=== PATIENT | male | born 1995 | race Caucasian/White ===

== ENCOUNTER → 2016-07-23 | Outpatient (REF) ==
--- NOTE | 2016-07-23 15:14 | PFTRPT ---
DATE OF PROCEDURE: 07/23/2016 ORDERED BY: Karina Hastings Study of excellent technical quality. Forced vital capacity normal. FEV1 is in proportion. Obstructive index is therefore normal. Expiratory limb of the flow volume loop is normal. Total lung capacity normal. Residual volume is generally in proportion. Diffusion capacity is normal. No hemoglobin available for correction. Airways resistance and conductance are normal. IMPRESSION: Normal study. MTDD
== END ==
LOC: M CARPUL 14:50
PROVIDERS: ATTEND Nurse Practitioner Adult Health
DX: Z02.89 Encounter for other administrative examinations (principal)

== ENCOUNTER 2016-09-26 22:19 | Emergency (ER) | payer BC ==
[~2016-09-26] VITALS: Ht 180.3 cm; Wt 113.4 kg
[2016-09-26] MEDS ORDERED: CLEO300C2 PO (23:59)
[2016-09-26] MEDS ORDERED: INDO50CA PO (23:59)
[2016-09-27] MEDS ORDERED: CLINDAMYCIN 150 MG CAP PO ONE
[2016-09-27] MEDS ORDERED: INDOMETHACIN 25 MG CAP PO ONE
[2016-09-27 00:11] VITALS: BP 128/77
== END 2016-09-27 00:14 | disposition home or self-care (01) ==
LOC: M ED 23:35
DX: L03.032 Cellulitis of left toe (principal); Z88.1 Allergy status to other antibiotic agents

== ENCOUNTER → 2016-10-05 | Outpatient (CLI) | payer BC ==
[~2016-10-05] MED LIST: CLEO300C2 PO; INDO50CA PO
== END ==
LOC: M LAB 14:19
PROVIDERS: ATTEND Nurse Practitioner Family
DX: M1A.0720 Idiopathic chronic gout, left ankle and foot, without tophus (tophi) (principal)

== ENCOUNTER → 2017-04-23 | Outpatient (CLI) | payer BC ==
--- NOTE | 2017-04-23 13:46 | REP ---
Clinical: Pain. Technique: AP, lateral, bilateral oblique views of the right ankle. Comparison: 02/12/2009. Findings: Diffuse soft tissue swelling is appreciated primarily over the lateral malleolus. No acute fracture dislocation. Joint spaces and ankle mortise are intact. No overt arthritic degenerative changes noted. Impression: Diffuse swelling. Signed by Russel Jara MD 04/23/2017 01:38 P
[2017-04-23 17:12] LABS: BASO # 0.1 10^3/uL (0.0-0.2); BASO % 1.1 % (0.0-1.0); EOS # 0.2 10^3/uL (0.0-0.50); EOS % 2.4 % (0.0-3.0); IMMATURE GRANULOCYTE % 0.5 % (0-0); LYMPH # 1.9 10^3/uL (1.5-6.5); LYMPH % 22.1 % (24.0-44.0); MEAN CORPUSCULAR HGB CONC 34.4 g/dl (32.0-36.5); MEAN CORPUSCULAR VOLUME 87.1 fl (80.0-96.0); MONO # 0.8 10^3/uL (0.0-0.8); MONO % 9.9 % (0.0-5.0); NEUTROPHILS # 5.4 10^3/uL (1.8-7.7); PLATELET COUNT, AUTOMATED 289 10^3/uL (150-450); RED CELL DISTRIBUTION WIDTH 12.2 % (11.5-14.5); WHITE BLOOD COUNT 8.4 10^3/uL (4.0-10.0)
== END ==
LOC: M WUC 13:17
PROVIDERS: ATTEND Physician Assistant
DX: M25.571 Pain in right ankle and joints of right foot (principal); M79.89 Other specified soft tissue disorders

== ENCOUNTER → 2017-07-09 | Outpatient (CLI) | payer BC ==
[2017-07-09 14:56] LABS: ANION GAP 8 MEQ/L (8-16); BLOOD UREA NITROGEN 15 MG/DL (7-18); CALCIUM LEVEL 8.9 MG/DL (8.5-10.1); CARBON DIOXIDE LEVEL 27 MEQ/L (21-32); CHLORIDE LEVEL 106 MEQ/L (98-107); GLOMERULAR FILTRATION RATE > 60.0 (>60); GLUCOSE, FASTING 84 MG/DL (70-100); POTASSIUM SERUM 4.3 MEQ/L (3.5-5.1); SODIUM LEVEL 141 MEQ/L (136-145); URIC ACID 6.5 MG/DL (3.5-7.2)
== END ==
LOC: M LAB 13:08
DX: M10.071 Idiopathic gout, right ankle and foot (principal)
CPT/HCPCS: 84550

== ENCOUNTER → 2017-07-17 | Outpatient (REF) | LOC: M CARPUL 10:54 | DX: Z02.89 Encounter for other administrative examinations (principal) ==

== ENCOUNTER 2018-07-03 00:20 | Emergency (ER) | payer BC ==
[~2018-07-03] VITALS: Ht 180.3 cm; Wt 115.9 kg
[2018-07-03] MEDS ORDERED: METOCLOPRAMIDE INJ 10MG/2ML VIAL (J2765) IV ONE (00:45)
[2018-07-03] MEDS ORDERED: NS 1,000 ML IV ONE (00:45)
[2018-07-03] MEDS ORDERED: MORPHINE 4 MG/ML 1ML VIAL/SYRINGE (J2270) IV ONE (00:45)
[2018-07-03] MEDS ORDERED: GASTROGRAFIN SOLUTION 30ML (Q9963) As Ordered ONE (00:45)
[2018-07-03 00:49] LABS: BASO # 0.1 10^3/uL (0.0-0.2); BASO % 0.7 % (0.0-1.0); EOS # 0.2 10^3/uL (0.0-0.50); EOS % 2.5 % (0.0-3.0); HEMATOCRIT 46.9 % (42.0-52.0); HEMOGLOBIN 16.1 g/dl (13.5-17.5); LYMPH # 1.9 10^3/uL (1.5-6.5); LYMPH % 20.2 % (24.0-44.0); MEAN CORPUSCULAR HEMOGLOBIN 30.8 pg (27.0-33.0); MEAN CORPUSCULAR HGB CONC 34.3 g/dl (32.0-36.5); MEAN CORPUSCULAR VOLUME 89.8 fl (80.0-96.0); MONO # 0.7 10^3/uL (0.0-0.8); MONO % 7.9 % (0.0-5.0); NEUTROPHILS # 6.3 10^3/uL (1.8-7.7); NEUTROPHILS % 68.5 % (36.0-66.0); PLATELET COUNT, AUTOMATED 279 10^3/uL (150-450); RED BLOOD COUNT 5.22 10^6/uL (4.30-6.10); WHITE BLOOD COUNT 9.2 10^3/uL (4.0-10.0)
[2018-07-03] MEDS: GASTROGRAFIN SOLUTION 30ML PO SCH ×2 (00:50→01:16)
[2018-07-03 01:16] LABS: ALBUMIN 4.2 GM/DL (3.2-5.2); ALT/SGPT 44 U/L (12-78); BILIRUBIN,DIRECT 0.1 MG/DL (0.0-0.2); BILIRUBIN,TOTAL 0.4 MG/DL (0.2-1.0); BLOOD UREA NITROGEN 11 MG/DL (7-18); CALCIUM LEVEL 8.6 MG/DL (8.5-10.1); CARBON DIOXIDE LEVEL 28 MEQ/L (21-32); CHLORIDE LEVEL 105 MEQ/L (98-107); CREATININE FOR GFR 0.89 MG/DL (0.70-1.30); GLOMERULAR FILTRATION RATE > 60.0 (>60); GLUCOSE, FASTING 102 MG/DL (70-100); LIPASE 89 U/L (73-393); POTASSIUM SERUM 3.9 MEQ/L (3.5-5.1); SODIUM LEVEL 141 MEQ/L (136-145); TOTAL PROTEIN 7.3 GM/DL (6.4-8.2)
[2018-07-03] MEDS ORDERED: ISOVUE-370 76% 100ML VIAL (Q9967) As Ordered ONE (02:13)
[2018-07-03 03:05] LABS: APPEARANCE, URINE CLEAR (CLEAR); BACTERIA, URINE AUTO NEGATIVE (NEGATIVE); BILIRUBIN, URINE AUTO NEGATIVE (NEGATIVE); BLOOD, URINE BLOOD NEGATIVE (NEGATIVE); COLOR, URINE YELLOW (YELLOW); GLUCOSE, URINE (UA) AUTO NEGATIVE (NEGATIVE); KETONE, URINE AUTO NEGATIVE (NEGATIVE); LEUKOCYTE ESTERASE, URINE AUTO NEGATIVE (NEGATIVE); MUCUS, URINE SMALL (NEGATIVE); NITRITE, URINE AUTO NEGATIVE (NEGATIVE); PROTEIN, URINE AUTO NEGATIVE (NEGATIVE); RBC, URINE AUTO 1 /HPF (0-3); SPECIFIC GRAVITY URINE AUTO 1.024 (1.002-1.035); SQUAMOUS EPITHELIAL CELL UR AU 0 /HPF (0-6); UROBILINOGEN, URINE AUTO 0.2 mg/dL (0.0-2.0); WBC, URINE AUTO 1 /HPF (0-3)
--- NOTE | 2018-07-03 03:55 | REPVR ---
EXAM: CT Abdomen and Pelvis With Contrast EXAM DATE/TIME: 07/03/2018 12:37 AM CLINICAL HISTORY: 22 years old, male; Pain; Abdominal pain; Localized; Right lower quadrant (rlq); Additional info: Rlq pain TECHNIQUE: Axial computed tomography images of the abdomen and pelvis with intravenous contrast. All CT scans at this facility use at least one of these dose optimization techniques: automated exposure control; mA and/or kV adjustment per patient size (includes targeted exams where dose is matched to clinical indication); or iterative reconstruction. Coronal and sagittal reformatted images were created and reviewed. CONTRAST: Contrast Material: 100 ml of iso; Contrast Route: ac COMPARISON: CT ABD PELVIS WITH CONTRAST 02/13/2012 10:10 AM FINDINGS: LUNG BASES: Mild dependent atelectasis. VASCULAR: Major vasculature is within normal limits. PERITONEAL : No free air or free fluid. GI: No hiatal hernia. The stomach is not sufficiently distended to evaluate wall thickening. No appearance of bowel obstruction. There is no focal mesenteric inflammatory stranding. Small nonspecific mesenteric lymph nodes are seen. Mild apparent wall thickening of the terminal ileum may be artifact secondary to insufficient distention, as there is no dalia-intestinal inflammatory stranding. Scattered fecal material and gas within portions of the colon. No pericolonic inflammatory stranding is seen. No evidence of acute diverticulitis. The appendix does not appear inflamed. HEPATOBILIARY, PANCREAS, SPLEEN: Sagittal hepatic length is 19.2 cm. Slightly distended gallbladder, measuring 9.1 cm in length. No calcified gallstones, biliary dilation, pericholecystic fluid or stranding is seen. No pancreatic inflammation. Spleen not enlarged. ADRENALS, KIDNEYS, BLADDER, RETROPERITONEAL: Adrenals within normal limits. No hydronephrosis. Symmetric renal enhancement. No perinephric stranding or fluid. No perivesical stranding. No bladder wall thickening. MUSCULOSKELETAL: Mild degenerative disc disease, lower lumbar levels. IMPRESSION: No free air, free fluid or focal mesenteric inflammation. Nonspecific gastrointestinal findings. Mild hepatic enlargement. Other incidental and non-emergent findings discussed above. Electronically signed by: Beka Mcintyre On 07/03/2018 03:54:18 AM
[2018-07-03 04:15] VITALS: BP 132/79
== END 2018-07-03 04:17 | disposition home or self-care (01) ==
LOC: M ED 00:20
DX: K52.9 Noninfective gastroenteritis and colitis, unspecified (principal); M10.9 Gout, unspecified; Z88.1 Allergy status to other antibiotic agents
CPT/HCPCS: 74177; 80048; 80076; 81001; 83690; 85025; 87086; 96361; 96374; 96375; 99284; J2270; J2765; Q9967

== ENCOUNTER → 2018-08-01 | Outpatient (REF) ==
--- NOTE | 2018-08-01 07:16 | PFTRPT ---
Height: 70.00 Inches Weight: 250.00 Lbs BSA: 2.29 Diagnosis: EMPLOYEE HE[employer] DATE OF PROCEDURE: 08/01/2018 ORDERED BY: Karina Hastings Spirometry: Study of excellent technical quality. Forced vital capacity normal. FEV1 in proportion. Obstructive index is, therefore, normal. Flow Volume Loop: Expiratory limb of the flow volume loop is normal. Diffusing Capacity: Diffusing capacity normal. Hemoglobin: No hemoglobin available for correction. Airway Mechanics: Airway resistance and conductance are normal. IMPRESSION: Normal study. MTDD
== END ==
LOC: M CARPUL 06:39 → EDSTATUS 07:00
PROVIDERS: ATTEND Nurse Practitioner Adult Health
DX: Z02.89 Encounter for other administrative examinations (principal)

== ENCOUNTER → 2019-07-30 | Outpatient (REF) | payer BC ==
[~2019-07-30] MED LIST changes: -INDO50CA PO; +INDO50CA91 PO
--- NOTE | 2019-07-30 14:21 | PFTRPT ---
Site: [facility], [address] [place] [address], [address] ID: [id number] Name: BELLA BALDWIN Visit Date: 07/30/2019 Second ID: [id number] Referring Doctor: Karina Hastings Reviewing Doctor: Gera Pratt MD Fire Marshal: Rigoberto LYNN RRT Age: 24 : 1995 Sex: Male Race: Height: 70.00 Inches Weight: 260.00 Lbs BSA: 2.33 Order IDs: [id number] Requested Test(s): <RESP-PFT.DLCO> Diagnosis: EMPLOYEE HE[employer] test meet the ATS standards for acceptability and repeatability. Review Status: Not Reviewed Pre-Bronch Post-Bronch Pred Actual %Pred Actual %Chng SPIROMETRY FVC (L) 5.55 5.20 93 FEV1 (L) 4.58 4.55 99 FEV1/FVC (%) 83 87 105 FEF 25% (L/sec) 9.31 11.15 119 FEF 50% (L/sec) 6.48 6.48 99 FEF 75% (L/sec) 2.44 2.57 105 FEF 25-75% (L/sec) 4.72 5.50 116 FEF Max (L/sec) 10.20 12.04 117 FIVC (L) 4.94 FIF 50% (L/sec) 5.63 9.27 164 FIF Max (L/sec) 9.76 MVV (L/min) 184 174 94 Expiratory Time (sec) 6.61 Back Extrap Vol (L) 0.15 Time To FEFmax (sec) 0.083 LUNG VOLUMES SVC (L) 5.36 5.10 95 IC (L) 3.55 4.24 119 ERV (L) 1.81 0.85 47 TGV (L) 3.33 2.45 73 RV (Pleth) (L) 1.52 1.60 105 TLC (Pleth) (L) 6.88 6.69 97 RV/TLC (Pleth) (%) 22 24 108 DIFFUSION DLCOunc (ml/min/mmHg) 36.44 38.81 106 DL/VA (ml/min/mmHg/L) 5.30 6.18 116 VA (L) 6.88 6.28 91 BHT (sec) 9.45 IVC (L) 4.82 TLC (SB) (L) 6.43 AIRWAYS RESISTANCE Raw (cmH2O/L/s) 1.45 1.33 91 Gaw (L/s/cmH2O) 1.03 0.82 79 sRaw (cmH2O*s) 4.76 3.45 72 sGaw (1/cmH2O*s) 0.20 0.30 148
== END ==
LOC: M CARPUL 13:58 → EDSTATUS 14:00
PROVIDERS: ATTEND Nurse Practitioner Adult Health
DX: Z02.1 Encounter for pre-employment examination (principal)

== ENCOUNTER → 2020-07-05 | Outpatient (REF) | payer BC ==
[2020-07-05 18:27] LABS: INFLUENZA A AMPLIFICATION NEGATIVE (NEGATIVE); INFLUENZA B AMPLIFICATION NEGATIVE (NEGATIVE)
== END ==
LOC: M LAB REF 17:19
PROVIDERS: ATTEND Physician Assistant Medical
DX: J11.1 Influenza due to unidentified influenza virus with other respiratory manifestations (principal)

== ENCOUNTER → 2020-07-06 | Outpatient (REF) | LOC: M LABSMTC 11:02 | PROVIDERS: ATTEND Pediatrics | DX: Z20.822 Contact with and (suspected) exposure to COVID-19 (principal) ==

== ENCOUNTER → 2020-07-09 | Outpatient (REF) | payer BC | LOC: M LAB REF 17:59 | PROVIDERS: ATTEND Physician Assistant Medical | DX: Z20.822 Contact with and (suspected) exposure to COVID-19 (principal) ==

== ENCOUNTER → 2020-07-13 | Outpatient (CLI) | payer BC ==
[2020-07-13 09:13] LABS: BASO # 0.1 10^3/uL (0.0-0.2); BASO % 1.3 % (0.0-1.0); EOS # 0.2 10^3/uL (0.0-0.5); EOS % 2.7 % (0.0-3.0); HEMATOCRIT 45.9 % (42.0-52.0); HEMOGLOBIN 15.9 g/dl (13.5-17.5); LYMPH # 1.8 10^3/uL (1.5-5.0); LYMPH % 28.1 % (24.0-44.0); MEAN CORPUSCULAR HEMOGLOBIN 31.3 pg (27.0-33.0); MEAN CORPUSCULAR HGB CONC 34.6 g/dl (32.0-36.5); MEAN CORPUSCULAR VOLUME 90.4 fl (80.0-96.0); MONO # 0.6 10^3/uL (0.0-0.8); MONO % 9.4 % (2.0-8.0); NEUTROPHILS # 3.7 10^3/uL (1.5-8.5); NEUTROPHILS % 57.9 % (36.0-66.0); PLATELET COUNT, AUTOMATED 255 10^3/uL (150-450); RED BLOOD COUNT 5.08 10^6/uL (4.30-6.10); WHITE BLOOD COUNT 6.4 10^3/uL (4.0-10.0)
[2020-07-13 09:45] LABS: ALBUMIN 4.1 GM/DL (3.2-5.2); ALT/SGPT 52 U/L (12-78); BILIRUBIN,TOTAL 0.6 MG/DL (0.2-1.0); BLOOD UREA NITROGEN 17 MG/DL (7-18); CALCIUM LEVEL 8.7 MG/DL (8.5-10.1); CARBON DIOXIDE LEVEL 28 MEQ/L (21-32); CHLORIDE LEVEL 107 MEQ/L (98-107); CHOLESTEROL LEVEL 249 MG/DL (<200); CHOLESTEROL RISK RATIO 5.081 (<5); CREATININE FOR GFR 0.75 MG/DL (0.70-1.30); GLOMERULAR FILTRATION RATE > 60.0 (>60); GLUCOSE, FASTING 93 MG/DL (70-100); HDL CHOLESTEROL 49 MG/DL (>40); LDL CHOLESTEROL 163 MG/DL (<100); NON-HDL-C 200 MG/DL; POTASSIUM SERUM 4.1 MEQ/L (3.5-5.1); SODIUM LEVEL 141 MEQ/L (136-145); TOTAL PROTEIN 7.1 GM/DL (6.4-8.2); TRIGLYCERIDES LEVEL 186 MG/DL (<150); URIC ACID 7.8 MG/DL (3.5-7.2)
[2020-07-13 10:14] LABS: HEMOGLOBIN A1c 4.8 %
[2020-07-13 11:22] LABS: TOTAL 25(OH) VITAMIN D 10.6 NG/ML (30.0-100.0)
== END ==
LOC: M LAB 07:57
PROVIDERS: ATTEND Physician Assistant
DX: Z13.220 Encounter for screening for lipoid disorders (principal); Z13.29 Encounter for screening for other suspected endocrine disorder

== ENCOUNTER 2020-07-22 21:16 | Emergency (ER) | payer BC ==
[~2020-07-22] VITALS: Ht 180.3 cm; Wt 120.5 kg
[2020-07-22] MEDS ORDERED: IBUP-1114 PO (21:30)
[2020-07-22] MEDS ORDERED: CYCL5TAB PO (21:30)
[2020-07-22] MEDS ORDERED: LIDOCAINE 5% (LIDODERM) PATCH TD ONE (23:30)
[2020-07-22] MEDS ORDERED: KETOROLAC 30 MG/ML 1ML VIAL IV ONE (23:30)
[2020-07-22] MEDS ORDERED: diazePAM 10MG/2ML SYRINGE (J3360 PER 5MG) IV ONE (23:30)
[2020-07-23] MEDS ORDERED: MORPHINE 4 MG/ML 1ML VIAL/SYRINGE (J2270) IV ONE (01:15)
[2020-07-23] MEDS ORDERED: NORCO 5/325MG TABLET (BULK FOR ED) PO ONE (01:15)
[2020-07-23] MEDS ORDERED: ONDANSETRON 4MG/2ML VIAL IV ONE (01:15)
[2020-07-23] MEDS ORDERED: methylPREDNISolone 125MG 2ML VIAL IV ONE (01:15)
[2020-07-23 01:54] VITALS: BP 129/81
[2020-07-23] MEDS ORDERED: ROBA750T4 PO (02:22)
[2020-07-23] MEDS ORDERED: NAPR-837 PO (02:22)
[2020-07-23] MEDS ORDERED: PRED20TA PO (02:22)
[2020-07-23] MEDS ORDERED: ASPE4PAD TOP (02:22)
[2020-07-23] MEDS ORDERED: HYDR-3713 PO (02:23)
[2020-07-23] MEDS ORDERED: **NOTE PATIENT COMMENT** MISC XX ONE (11:30)
== END 2020-07-23 02:47 | disposition home or self-care (01) ==
LOC: M ED 21:16
DX: M54.5 Low back pain (principal); K50.90 Crohn's disease, unspecified, without complications; Z88.1 Allergy status to other antibiotic agents
CPT/HCPCS: 96374; 96375; 99284; J1885; J2270; J2405; J2930; J3360

== ENCOUNTER → 2020-09-14 | Outpatient (REF) ==
[~2020-09-14] MED LIST changes: +ASPE4PAD TOP; +CYCL5TAB PO; +HYDR-3713 PO; +IBUP-1114 PO; +NAPR-837 PO; +PRED20TA PO; +ROBA750T4 PO
--- NOTE | 2020-09-14 08:55 | PFTRPT ---
Height: 70.00 Inches Weight: 260.00 Lbs BSA: 2.33 Diagnosis: EMPLOYEE HE[employer] DATE: 09/14/2020 ORDERED BY: Karina Hastings NP Pre and post bronchodilator studies have excellent technical quality. Forced vital capacity is normal. FEV1 is in proportion. Obstructive index is therefore normal. Expiratory limit of the flow-volume loop normal Total lung capacity is normal. Residual volume is in proportion Diffusing capacity is normal. No hemoglobin for correction. Airway resistance and conductance are normal. IMPRESSION: Normal study. MTDD
== END ==
LOC: EDSTATUS 08:00 → M EMP 08:33
PROVIDERS: ATTEND Nurse Practitioner Adult Health
DX: Z02.89 Encounter for other administrative examinations (principal)

== ENCOUNTER → 2020-12-28 | Outpatient (CLI) | payer BC ==
[~2020-12-28] MED LIST changes: +GLUCAGON INJ 1MG VIAL As Ordered ONE; +ISOVUE-370 76% 100ML VIAL As Ordered ONE; +NEULUMEX 0.1% SUSPENSION 450ML BOTTLE (FORMERLY VOLUMEN) As Ordered ONE
[2020-12-28 12:38] LABS: BASO # 0.1 10^3/uL (0.0-0.2); BASO % 1.1 % (0.0-1.0); EOS # 0.3 10^3/uL (0.0-0.5); EOS % 3.6 % (0.0-3.0); HEMATOCRIT 47.1 % (42.0-52.0); HEMOGLOBIN 16.3 g/dl (13.5-17.5); LYMPH % 29.2 % (24.0-44.0); MEAN CORPUSCULAR HEMOGLOBIN 31.2 pg (27.0-33.0); MEAN CORPUSCULAR HGB CONC 34.6 g/dl (32.0-36.5); MEAN CORPUSCULAR VOLUME 90.1 fl (80.0-96.0); MONO # 0.6 10^3/uL (0.0-0.8); MONO % 7.9 % (2.0-8.0); NEUTROPHILS % 57.8 % (36.0-66.0); PLATELET COUNT, AUTOMATED 271 10^3/uL (150-450); RED BLOOD COUNT 5.23 10^6/uL (4.30-6.10)
[2020-12-28 13:04] LABS: ALBUMIN 4.2 GM/DL (3.2-5.2); ALT/SGPT 63 U/L (12-78); BILIRUBIN,TOTAL 0.5 MG/DL (0.2-1.0); BLOOD UREA NITROGEN 12 MG/DL (7-18); CALCIUM LEVEL 9.6 MG/DL (8.5-10.1); CARBON DIOXIDE LEVEL 30 MEQ/L (21-32); CHLORIDE LEVEL 108 MEQ/L (98-107); CREATININE FOR GFR 0.78 MG/DL (0.70-1.30); GLOMERULAR FILTRATION RATE > 60.0 (>60); GLUCOSE, FASTING 86 MG/DL (70-100); POTASSIUM SERUM 4.5 MEQ/L (3.5-5.1); SODIUM LEVEL 139 MEQ/L (136-145); TOTAL PROTEIN 7.3 GM/DL (6.4-8.2)
[2020-12-28 13:12] LABS: VITAMIN B12 LEVEL 328 PG/ML (247-911)
[2020-12-28 14:14] LABS: ERYTHROCYTE SEDIMENTATION RATE 1 mm/hr (0-15)
--- NOTE | 2020-12-29 06:57 | REP ---
INDICATION: IBS DIARRHEA ABN WT LOSS COMPARISON: None. TECHNIQUE: Axial contrast-enhanced images from the lung bases to the pubic symphysis with images obtained in arterial and portal venous phases of enhancement. Low-dose oral contrast material was administered prior to imaging. Coronal and sagittal reformations were obtained. FINDINGS: The enteric system including stomach, small bowel, and large bowel is essentially normal. There is a small hiatal hernia at the gastroesophageal junction. There are few scattered sigmoid diverticula without acute diverticulitis. Terminal ileum, cecum and appendix are normal. There is no evidence for perienteric inflammatory stranding or fluid. No obvious areas of mass lesion or stricture. Liver demonstrates mild enlargement and fatty infiltration without focal hepatic lesion. The spleen, pancreas, bilateral adrenal glands and kidneys are normal. Pelvis demonstrates normal bladder and age-appropriate prostate/seminal vesicles. No ascites. No adenopathy. No free air. Atherosclerotic changes to the aorta and vasculature noted. Musculoskeletal structures are age-appropriate. Lung bases are clear. IMPRESSION: 1. Few scattered sigmoid diverticula. No further enteric abnormalities are appreciated. 2. Mild hepatomegaly and hepatosteatosis. <Electronically signed by Russel Jara > 12/29/20 0637
== END ==
LOC: M RAD 11:59
PROVIDERS: ATTEND Internal Medicine Gastroenterology
DX: K58.0 Irritable bowel syndrome with diarrhea (principal); R19.7 Diarrhea, unspecified; R63.4 Abnormal weight loss
CPT/HCPCS: 36415; 74177; 80053; 82607; 85025; 85652; 86140; J1610; Q9967

== ENCOUNTER → 2020-12-28 | Outpatient (CLI) | payer BC ==
[~2020-12-28] MED LIST changes: -GLUCAGON INJ 1MG VIAL As Ordered ONE; -ISOVUE-370 76% 100ML VIAL As Ordered ONE; -NEULUMEX 0.1% SUSPENSION 450ML BOTTLE (FORMERLY VOLUMEN) As Ordered ONE
[2020-12-28 13:15] LABS: ALBUMIN 4.3 GM/DL (3.2-5.2); ALT/SGPT 61 U/L (12-78); BILIRUBIN,TOTAL 0.5 MG/DL (0.2-1.0); BLOOD UREA NITROGEN 13 MG/DL (7-18); CALCIUM LEVEL 9.7 MG/DL (8.5-10.1); CARBON DIOXIDE LEVEL 28 MEQ/L (21-32); CHLORIDE LEVEL 108 MEQ/L (98-107); CHOLESTEROL LEVEL 150 MG/DL (<200); CHOLESTEROL RISK RATIO 3.333 (<5); CREATININE FOR GFR 0.76 MG/DL (0.70-1.30); GLOMERULAR FILTRATION RATE > 60.0 (>60); GLUCOSE, FASTING 85 MG/DL (70-100); HDL CHOLESTEROL 45 MG/DL (>40); LDL CHOLESTEROL 78 MG/DL (<100); NON-HDL-C 105 MG/DL; POTASSIUM SERUM 4.5 MEQ/L (3.5-5.1); SODIUM LEVEL 139 MEQ/L (136-145); TOTAL 25(OH) VITAMIN D 22.2 NG/ML (30.0-100.0); TOTAL PROTEIN 7.2 GM/DL (6.4-8.2); TRIGLYCERIDES LEVEL 135 MG/DL (<150); URIC ACID 5.1 MG/DL (3.5-7.2)
== END ==
LOC: M LAB 12:13
PROVIDERS: ATTEND Physician Assistant
DX: M10.071 Idiopathic gout, right ankle and foot (principal); E78.5 Hyperlipidemia, unspecified; E55.9 Vitamin D deficiency, unspecified

== ENCOUNTER → 2021-03-30 | Outpatient (CLI) | payer BC ==
[~2021-03-30] MED LIST changes: +ALLO300T2 PO; +CYCL-707 PO; +GABA-1171 PO; +PANT40TA29 PO; +ROSU10TA6 PO
== END ==
LOC: M LABSMTC 10:20
PROVIDERS: ATTEND Anesthesiology
DX: Z01.812 Encounter for preprocedural laboratory examination (principal); Z20.822 Contact with and (suspected) exposure to COVID-19

== ENCOUNTER 2021-04-04 06:30 | Day surgery (SDC) | payer BC ==
[~2021-04-04] VITALS: Ht 180.3 cm; Wt 120.6 kg
[~2021-04-04 06:30] MED LIST changes: +NS 1,000 ML IV ONE
--- OUTSIDE RECORDS SUMMARY | 2021-04-04 06:34 | CCD | Continuity of Care Document ---
Author Author Gilberto ANTONY PA Organization [place] [address] Phone [phone] Care Team Providers Care Charge Hand Name Role Phone Shameka Olvera D.O. AUTM [phone] M.D. 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 ANGEL Jones Onset: 06/29/2020 Gastroesophageal reflux disease ANGEL Jones Onset: 0 06/29/2020 Crohn's disease of small AND large intestines ANGEL Lora Onset: 06/29/2020 Social History Type Date Description Comments Sex Unknown ETOH Use Denies alcohol use Tobacco Use Start: Unknown Patient has never smoked Recreational Drug Use Denies Drug Use Exercise Type/Frequency Walks daily Tattoo/Piercing Negative For Tattoo Sun Exposure Does not use sunscreen Seat Belt/Car Seat Always uses seat belt Guns in Home No Allergies, Adverse Reactions, Alerts Active Allergies Criticality Reaction | Severity Comments Date Cefaclor Unable to assess criticality 05/07/2017 Medications Active Medications SIG Qnty Indications Ordering Provide r Date Pantoprazole Sodium 20mg Tablets D R 1 by mouth every day 90tabs K21.9 Tiffanie GallegosODolores 12/30 Rosuvastatin Calcium 10mg Tablets take one tablet by mouth each night 90tabs Tiffanie GallegosODolores 07/17/2020 Colcrys 0.6mg Tablets 1 tab by mouth three times daily as needed for gout pain 270tabs M10.071 Shameka Collins D.O. 05/07/2017 Allopurinol 300mg Tablets take one tablet by mouth every day 90tabs Shameka Olvera D.O. Naproxen Sodium 220mg Tablets Unknown History Medications Vitamin D (Ergocalciferol) 1.25mg (91427 Ut) Capsules 1 capsule weekly for 12 weeks 12caps Tiffanie ReyesO. 07/17/2020 - 12/30/2020 Immunizations CPT Code Status Date Vaccine Lot # [id number] Given 06/29/2020 Tetanus, Diphthe gin Toxoids/Acellular Pertussis Vaccine 7 Or > [id number] Given 06/29/2020 Tetanus, Diphthe gin Toxoids/Acellular Pertussis Vaccine 7 Or > [id number] Vital Signs Date Vital Result Comment 12/30/2020 1:35pm BP Systolic 132 mmHg BP Diastolic 74 mmHg Height 70.3 inches 5'10.30" Weight 269.12 lb BMI (Body Mass Index) 38.3 kg/m2 Heart Rate 78 /min Respiratory Rate 18 /min Body Temperature 97.9 F O2 % BldC Oximetry 98 % [place] Body Weight 166 lb 06/29/2020 1:12pm BP Systolic 126 mmHg BP Diastolic 70 mmHg Height 70.3 inches 5'10.30" Weight 270.38 lb BMI (Body Mass Index) 38.5 kg/m2 Heart Rate 85 /min Respiratory Rate 18 /min Body Temperature 98.0 F O2 % BldC Oximetry 96 % [place] Body Weight 166 lb Results Test Acquired Date Facility Test Result H/L Range Note Comprehensive Metabolic Profil 12/28/[address] [address] [phone] Glucose, Fasting 85 mg/dL Normal 70-100 Blood Urea Nitrogen 13 mg/dL Normal 7-18 Creatinine For GFR 0.76 mg/dL Normal 0.70-1.30 Glomerular Filtration Rate > 60.0 Normal >60 1 Sodium Level 139 mEq/L Normal 136-145 Potassium Serum 4.5 mEq/L Normal 3.5-5.1 Chloride Level 108 mEq/L High 98-107 Carbon Dioxide Level 28 mEq/L Normal 21-32 Anion Gap 3 mEq/L Low 8-16 Calcium Level 9.7 mg/dL Normal 8.5-10.1 Ast/Sgot 36 U/L Normal 7-37 Alt/SGPT 61 U/L Normal 12-78 Alkaline Phosphatase 65 U/L Normal 45-117 Bilirubin,Total 0.5 mg/dL Normal 0.2-1.0 Total Protein 7.2 GM/DL Normal 6.4-8.2 Albumin 4.3 GM/DL Normal 3.2-5.2 Albumin/Globulin Ratio 1.5 Normal Laboratory test finding 12/28/2020 [facility] [address] [place] [address] [phone] Uric Acid 5.1 mg/dL Normal 3.5-7.2 Total 25(Oh) Vitamin D 22.2 NG/ML Low 30.0-100.0 Lipid Panel 12/28/2020 [facility] [address] [place] [address] [phone] Triglycerides Level 135 mg/dL Normal <150 Cholesterol Level 150 mg/dL Normal <200 HDL Cholesterol 45 mg/dL Normal >40 LDL Cholesterol 78 mg/dL Normal <100 Non-HDL-C 105 mg/dL Normal Cholesterol Risk Ratio 3.333 Normal <5 Comprehensive Metabolic Profil 12/28/2020 [facility] Outpa tient Testing (Registration) [address] [place] [address] [phone] Glucose, Fasting 86 mg/dL Normal 70-100 Blood Urea Nitrogen 12 mg/dL Normal 7-18 Creatinine For GFR 0.78 mg/dL Normal 0.70-1.30 Glomerular Filtration Rate > 60.0 Normal >60 2 Sodium Level 139 mEq/L Normal 136-145 Potassium Serum 4.5 mEq/L Normal 3.5-5.1 Chloride Level 108 mEq/L High 98-107 Carbon Dioxide Level 30 mEq/L Normal 21-32 Anion Gap 1 mEq/L Low 8-16 Calcium Level 9.6 mg/dL Normal 8.5-10.1 Ast/Sgot 30 U/L Normal 7-37 Alt/SGPT 63 U/L Normal 12-78 Alkaline Phosphatase 69 U/L Normal 45-117 Bilirubin,Total 0.5 mg/dL Normal 0.2-1.0 Total Protein 7.3 GM/DL Normal 6.4-8.2 Albumin 4.2 GM/DL Normal 3.2-5.2 Albumin/Globulin Ratio 1.4 Normal Laboratory test finding 12/28/2020 [facility] Outpatient T esting (Registration) [address] [place] [address] [phone] Vitamin B12 Level 328 pg/mL Normal 247-911 3 C Reactive Protein Quantitativ 0.30 mg/dL Normal 0.00-0.30 CBC With Differential 12/28/2020 [facility] Outpatient Nette ting (Registration) [address] [place] [address] [phone] White Blood Count 7.0 10 Normal 4.0-10.0 Red Blood Count 5.23 10 Normal 4.30-6.10 Hemoglobin 16.3 g/dL Normal 13.5-17.5 Hematocrit 47.1 % Normal 42.0-52.0 Mean Corpuscular Volume 90.1 fl Normal 80.0-96.0 Mean Corpuscular Hemoglobin 31.2 pg Normal 27.0-33.0 Mean Corpuscular HGB Conc 34.6 g/dL Normal 32.0-36.5 Red Cell Distribution Width 12.6 % Normal 11.5-14.5 Platelet Count, Automated 271 10 Normal 150-450 Neutrophils % 57.8 % Normal 36.0-66.0 Lymph % 29.2 % Normal 24.0-44.0 [place] % 7.9 % Normal 2.0-8.0 Eos % 3.6 % High 0.0-3.0 Baso % 1.1 % High 0.0-1.0 Immature Granulocyte % 0.4 % Normal 0-3.0 Nucleated Red Blood Cell % 0.0 % Normal 0-0 Neutrophils # 4.0 10 Normal 1.5-8.5 Lymph # 2.0 10 Normal 1.5-5.0 [place] # 0.6 10 Normal 0.0-0.8 Eos # 0.3 10 Normal 0.0-0.5 Baso # 0.1 10 Normal 0.0-0.2 Laboratory test finding 12/28/2020 [facility] Outpatient T esting (Registration) [address] [place] [address] [phone] Erythrocyte Sedimentation Rate 1 mm/hr Normal 0 -15 CBC With Differential 07/13/[address] [address] [phone] White Blood Count 6.4 10 Normal 4.0-10.0 Red Blood Count 5.08 10 Normal 4.30-6.10 Hemoglobin 15.9 g/dL Normal 13.5-17.5 Hematocrit 45.9 % Normal 42.0-52.0 Mean Corpuscular Volume 90.4 fl Normal 80.0-96.0 Mean Corpuscular Hemoglobin 31.3 pg Normal 27.0-33.0 Mean Corpuscular HGB Conc 34.6 g/dL Normal 32.0-36.5 Red Cell Distribution Width 12.2 % Normal 11.5-14.5 Platelet Count, Automated 255 10 Normal 150-450 Neutrophils % 57.9 % Normal 36.0-66.0 Lymph % 28.1 % Normal 24.0-44.0 [place] % 9.4 % High 2.0-8.0 Eos % 2.7 % Normal 0.0-3.0 Baso % 1.3 % High 0.0-1.0 Immature Granulocyte % 0.6 % Normal 0-3.0 Nucleated Red Blood Cell % 0.0 % Normal 0-0 Neutrophils # 3.7 10 Normal 1.5-8.5 Lymph # 1.8 10 Normal 1.5-5.0 [place] # 0.6 10 Normal 0.0-0.8 Eos # 0.2 10 Normal 0.0-0.5 Baso # 0.1 10 Normal 0.0-0.2 Comprehensive Metabolic Profil 07/13/[address] [address] [phone] Glucose, Fasting 93 mg/dL Normal 70-100 Blood Urea Nitrogen 17 mg/dL Normal 7-18 Creatinine For GFR 0.75 mg/dL Normal 0.70-1.30 Glomerular Filtration Rate > 60.0 Normal >60 4 Sodium Level 141 mEq/L Normal 136-145 Potassium Serum 4.1 mEq/L Normal 3.5-5.1 Chloride Level 107 mEq/L Normal 98-107 Carbon Dioxide Level 28 mEq/L Normal 21-32 Anion Gap 6 mEq/L Low 8-16 Calcium Level 8.7 mg/dL Normal 8.5-10.1 Ast/Sgot 19 U/L Normal 7-37 Alt/SGPT 52 U/L Normal 12-78 Alkaline Phosphatase 72 U/L Normal 45-117 Bilirubin,Total 0.6 mg/dL Normal 0.2-1.0 Total Protein 7.1 GM/DL Normal 6.4-8.2 Albumin 4.1 GM/DL Normal 3.2-5.2 Albumin/Globulin Ratio 1.4 Normal Lipid Panel 07/13/[address] [address] [phone] Triglycerides Level 186 mg/dL High <150 Cholesterol Level 249 mg/dL High <200 HDL Cholesterol 49 mg/dL Normal >40 LDL Cholesterol 163 mg/dL High <100 Non-HDL-C 200 mg/dL Normal Cholesterol Risk Ratio 5.081 High <5 FT4&TSH Panel 07/13/[address] [address] [phone] Thyroid Stimulating Hormone 2.900 uIU/ML Normal 0. 358-3.740 Free T4 1.00 ng/dL Normal 0.76-1.46 Hemoglobin A1c 07/13/[address] [address] [phone] Hemoglobin A1c 4.8 % Normal 5 Estimated Average Glucose 91 mg/dL Normal 60-110 Laboratory test finding 07/13/[address] [address] [phone] Uric Acid 7.8 mg/dL High 3.5-7.2 Total 25(Oh) Vitamin D 10.6 NG/ML Low 30.0-100.0 1 Units are mL/min/1.73 m2 Chronic Kidney Disease Staging per NKF: Stage I & II GFR >=60 Normal to Mildly Decreased Stage III GFR 30-59 Moderately Decreased Stage IV GFR 15-29 Severely Decreased Stage V GFR <15 Very Little GFR Left ESRD GFR <15 on DIRECTOR OF ENGINEERING 2 Units are mL/min/1.73 m2 Chronic Kidney Disease Staging per NKF: Stage I & II GFR >=60 Normal to Mildly Decreased Stage III GFR 30-59 Moderately Decreased Stage IV GFR 15-29 Severely Decreased Stage V GFR <15 Very Little GFR Left ESRD GFR <15 on DIRECTOR OF ENGINEERING 3 VITAMIN B12 NORMAL RANGE NORMAL 247 - 911 PG/ML INDETERMINATE 211 - 246 PG/ML DEFICIENT LESS THAN 211 PG/ML 4 Units are mL/min/1.73 m2 Chronic Kidney Disease Staging per NKF: Stage I & II GFR >=60 Normal to Mildly Decreased Stage III GFR 30-59 Moderately Decreased Stage IV GFR 15-29 Severely Decreased Stage V GFR <15 Very Little GFR Left ESRD GFR <15 on DIRECTOR OF ENGINEERING 5 REFERENCE RANGES: <=5.6% NORMAL 5.7-6.4% SUGGESTS IMPAIRED GLUCOSE META BOLISM/PREDIABETIC >= 6.5% ABNORMAL Procedures Date Code Description Status 12/30/2020 301[address] Office/Outpatient Established Mo d MDM 30-39 Min Completed Medical Devices Description No Information Available Encounters Type Date Location Provider Dx Diagnosis Office Visit 12/30/2020 1:30p [facility] ANGEL Jones M10.071 Idiopathic gout, right ankle and foot K50.80 Crohn's disease of both smal l and lg int w/o complications K21.9 Gastro-esophageal reflux dis ease without esophagitis E78.00 Pure hypercholesterolemia, u nspecified Z30.02 Coun and instruction in natr l family planning to avoid preg Assessments Date Code Description Provider 12/30/2020 M10.071 Idiopathic gout, right ankle and foot ANGEL Jones 12/30/2020 K50.80 Crohn's disease of b oth small and large intestine without complications ANGEL Jones 12/30/2020 K21.9 Gastro-esophageal reflux disease without esophagitis ANGEL Jones 12/30/2020 E78.00 Pure hypercholesterolemia, unspe cified ANGEL Jones 12/30/2020 Z30.02 Counseling and instr uction in natural family planning to avoid ANGEL Jones Plan of Treatment Future Appointment(s):* 07/03/2021 9:00 am - ANGEL Jones at [facility] Functional Status Description No Information Available Mental Status Description No Information Available Referrals Refer to Reason for Referral Status Appt Date Michael [place] [id number] [address] [phone]
--- OUTSIDE RECORDS SUMMARY | 2021-04-04 06:34 | CCD | Continuity of Care Document ---
Author Author Gilberto ANTONY PA Organization Unknown [place] [address] Phone [phone] Care Team Providers Care Sole Cutter Name Role Phone Shameka Olvera D.O. AUTM [phone] Dixon Lynn M.D. AUTM [phone] Michael Voss MD AUTM [phone] Problems Active Problems Provider Date Gout ANGEL [...] uses seat belt Guns in Home No Allergies and adverse reactions Active Allergies Criticality Reaction | Severity Comments Date Cefaclor Unable to assess criticality 05/07/2017 Medications Active Medications SIG Qnty Indications Ordering Provide r Date Pantoprazole Sodium 40mg Tablets D R Take One Tablet By Mouth Every Day 90tabs K21.9 Shameka Crisostomo er, D.O. 02/12/2021 Rosuvastatin Calcium 10mg Tablets Take One Tablet By Mouth Every Evening 90tabs Shameka Crisostomo er, D.O. 07/17/2020 Colcrys 0.6mg Tablets 1 tab by mouth three times daily as needed for gout pain 270tabs M10.071 Shameka Collins D.O. 05/07/2017 Allopurinol 300mg Tablets Take One Tablet By Mouth Every Day 90tabs Shameka Olvera D.O. Naproxen Sodium 220mg Tablets Unknown History Medications Pantoprazole Sodium 20mg Tablets D R 1 by mouth every day 90tabs K21.9 Shameka Olvera D.O. 12/30 - 02/12/2021 Immunizations CPT Code Status Date Vaccine Lot # [id number] Given 06/29/2020 Tetanus, Diphthe gin Toxoids/Acellular Pertussis Vaccine 7 Or > [id number] Given 06/29/2020 Tetanus, Diphthe gin Toxoids/Acellular Pertussis Vaccine 7 Or > [id number] Vital Signs Date Vital Result Comment 12/30/2020 1:35pm BP Systolic 132 mmHg BP Diastolic 74 mmHg Height 70.3 inches 5'10.30" Weight 269.12 lb BMI (Body Mass Index) 38.3 kg/m2 Heart Rate 78 /min Respiratory Rate 18 /min Body Temperature 97.9 F O2 % BldC Oximetry 98 % [place] Body Weight 166 lb 06/29/2020 1:12pm BP Systolic 126 mmHg BP Diastolic 70 mmHg Height 70.3 inches 5'10.30" Weight 270.38 lb BMI (Body Mass Index) 38.5 kg/m2 Heart Rate 85 /min Respiratory Rate 18 /min Body Temperature 98.0 F O2 % BldC Oximetry 96 % [place] Body Weight 166 lb Results Test Acquired Date Facility Test Result H/L Range Note Coronavirus 2019 Nasopharygeal 03/30/2021 [facility] Outpa tient Testing (Registration) [address] [place] [address] [phone] Coronavirus 2019 Nasopharygeal ASSAY INFORMATIO <SEE N OTE> 1 Comprehensive Metabolic Profil 12/28/[address] [address] [phone] Glucose, Fasting 85 mg/dL Normal 70-100 Blood [...] Ratio 1.5 Normal Laboratory test finding 12/28/2020 [facility] [address] [place] [address] [phone] Uric Acid 5.1 mg/dL Normal 3.5-7.2 Total 25(Oh) Vitamin D 22.2 NG/ML Low 30.0-100.0 Lipid Panel 12/28/2020 [facility] nter [address] [place] [address] [phone] Triglycerides Level 135 mg/dL Normal <150 Cholesterol Level 150 mg/dL Normal <200 HDL Cholesterol 45 mg/dL Normal >40 LDL Cholesterol 78 mg/dL Normal <100 Non-HDL-C 105 mg/dL Normal Cholesterol Risk Ratio 3.333 Normal <5 Comprehensive Metabolic Profil 12/28/2020 [facility] Outpa tient Testing (Registration) [address] [place] [address] [phone] Glucose, Fasting 86 mg/dL Normal 70-100 Blood Urea Nitrogen 12 mg/dL Normal 7-18 Creatinine For GFR 0.78 mg/dL Normal 0.70-1.30 Glomerular Filtration Rate > 60.0 Normal >60 3 Sodium Level 139 mEq/L Normal 136-145 Potassium [...] Ratio 1.4 Normal Laboratory test finding 12/28/2020 [facility] Outpatient T stephing (Registration) [address] [place] [address] [phone] Vitamin B12 Level 328 pg/mL Normal 247-911 4 C Reactive Protein Quantitativ 0.30 mg/dL Normal 0.00-0.30 CBC With Differential 12/28/2020 [facility] Outpatient Nette clayton (Registration) [address] [place] [address] [phone] White Blood Count 7.0 10 Normal 4.0-10.0 [...] 36.0-66.0 Lymph % 29.2 % Normal 24.0-44.0 [place] % 7.9 % Normal 2.0-8.0 Eos % 3.6 % High 0.0-3.0 Baso % 1.1 % High 0.0-1.0 Immature Granulocyte % 0.4 % Normal 0-3.0 Nucleated Red Blood Cell % 0.0 % Normal 0-0 Neutrophils # 4.0 10 Normal 1.5-8.5 Lymph # 2.0 10 Normal 1.5-5.0 [place] # 0.6 10 Normal 0.0-0.8 Eos # 0.3 10 Normal 0.0-0.5 Baso # 0.1 10 Normal 0.0-0.2 Laboratory test finding 12/28/2020 [facility] Outpatient Deja duarte (Registration) [address] [place] [address] [phone] Erythrocyte Sedimentation Rate 1 mm/hr Normal 0 -15 1 ASSAY INFORMATION: Real Time RT-PCR NOTE: The COVID-19 assay has been cleared by the U.S. Food and Drug Administration under the Emergency Use Authorization (EUA). [facility] and [facility] are designated as high complexity laboratories by the Clinical Laboratory Improvement Amendments of 1988(CLIA) and are qualified to perform this test. Not Detected 2 Units are mL/min/1.73 m2 Chronic Kidney Disease Staging per NKF: Stage I & II GFR >=60 Normal to Mildly Decreased Stage III GFR 30-59 Moderately Decreased Stage IV GFR 15-29 Severely Decreased Stage V GFR <15 Very Little GFR Left ESRD GFR <15 on CIRCUIT CLERK 3 Units are mL/min/1.73 m2 Chronic Kidney Disease Staging per NKF: Stage I & II GFR >=60 Normal to Mildly Decreased Stage III GFR 30-59 Moderately Decreased Stage IV GFR 15-29 Severely Decreased Stage V GFR <15 Very Little GFR Left ESRD GFR <15 on CIRCUIT CLERK 4 VITAMIN B12 NORMAL RANGE NORMAL 247 - 911 PG/ML INDETERMINATE 211 - 246 PG/ML DEFICIENT LESS THAN 211 PG/ML Procedures Date Code Description Status 12/30/2020 13001 Office/Outpatient Established Mo d MDM 30-39 Min Completed Medical Devices Description No Information Available Encounters Type Date Location Provider Dx Diagnosis Office Visit 12/30/2020 1:30p Family Medicine [facility] ANGEL Jones M10.071 Idiopathic gout, right ankle [...] 07/03/2021 9:00 am - ANGEL Jones at [facility] Functional Status Description No Information Available Mental Status Description No Information Available Referrals Refer to Reason for Referral Status Appt Date Michael Voss MD [place] [id number] [place] [address] [phone]
--- OUTSIDE RECORDS SUMMARY | 2021-04-04 06:34 | CCD | Continuity of Care Document ---
Author Author Gilberto CAPUTO MD Organization Unknown Address [address] [place] [address] Phone [phone] Care Team Providers Care Volunteer Services Coordinator Name Role Phone AUTM Unavailable Marcello Arroyo AUTM [phone] Problems Description No Information Available Social History Type Date Description Comments Sex Unknown ETOH Use Denies alcohol use Tobacco Use Start: Unknown Non Smoker Allergies, Adverse Reactions, Alerts Active Allergies Criticality Reaction | Severity Comments Date Cefaclor Unable to assess criticality Throat Swelling | Severe 07/25/2020 Medications Active Medications SIG Qnty Indications Ordering Provide r Date Dicyclomine HCL 20mg Tablets take 1 tablet by mouth 4 times a day as needed (1/2 hour before meal) for abdominal pain/diarrhea/spasm 60tabs K58.0 Genia Caputo MD 12/22/2020 Miralax 17GM/Scoop Powder use as directed see dr caputo colon preparation instructions 510gm K58.0 Fady trey Caputo MD 12/22/2020 Milk Of Magnesia 1200mg/15ML Suspe nsion take 45 milliliters by mouth as directed on colonoscopy prep sheet. 355ml K58.0 Genia Caputo MD 12/22/2020 Ibuprofen 400mg Tablets 2 by mouth as needed for pain Unknown Cyclobenzaprine HCL 5mg Tablets 2 tabs by mouth as needed for pain Unknown Allopurinol 100mg Tablets Unknown Pantoprazole Sodium 40mg Tablets D R daily -- one tablet in morning Unknown Gaviscon 80-14.2mg Chewtabs chew and swallow 2 tablets by mouth 4 times per day after meals and at bedtime as needed for acid indigestion Unknown Immunizations Description No Information Available Vital Signs Date Vital Result Comment 12/22/2020 1:31pm BP Systolic 136 mmHg BP Diastolic 68 mmHg Height 71 inches 5'11" Weight 277.00 lb BMI (Body Mass Index) 38.6 kg/m2 [place] Body Weight 172 lb Weight 125.647 kg BSA (Body Surface Area) 2.42 m2 07/22/2020 9:41am BP Systolic 131 mmHg BP Diastolic 79 mmHg Heart Rate 79 /min O2 % BldC Oximetry 98 % Body Temperature 97.9 F Height 71 inches 5'11" Weight 265.69 lb BMI (Body Mass Index) 37.1 kg/m2 [place] Body Weight 172 lb Weight 120.500 kg BSA (Body Surface Area) 2.38 m2 Results Test Acquired Date Facility Test Result H/L Range Note CBC With Differential 12/28/2020 [facility] Main Lab [address] [place] [address] [phone] White Blood Count 7.0 10 Normal 4.0-10.0 [...] 36.0-66.0 Lymph % 29.2 % Normal 24.0-44.0 [place] % 7.9 % Normal 2.0-8.0 Eos % 3.6 % High 0.0-3.0 Baso % 1.1 % High 0.0-1.0 Immature Granulocyte % 0.4 % Normal 0-3.0 Nucleated Red Blood Cell % 0.0 % Normal 0-0 Neutrophils # 4.0 10 Normal 1.5-8.5 Lymph # 2.0 10 Normal 1.5-5.0 [place] # 0.6 10 Normal 0.0-0.8 Eos # 0.3 10 Normal 0.0-0.5 Baso # 0.1 10 Normal 0.0-0.2 Comprehensive Metabolic Profil 12/28/2020 [facility] Main Lab [address] [place], [place] [id number] [phone] Glucose, Fasting 86 mg/dL Normal 70-100 Blood [...] Ratio 1.4 Normal Laboratory test finding 12/28/2020 [facility] Main Lab [address] [place] [address] [phone] Erythrocyte Sedimentation Rate 1 mm/hr Normal 0 -15 C Reactive Protein Quantitativ 0.30 mg/dL Normal 0.00-0.30 Vitamin B12 Level 328 pg/mL Normal 247-911 2, 3 1 Units are mL/min/1.73 m2 Chronic Kidney Disease Staging per NKF: Stage I & II GFR >=60 Normal to Mildly Decreased Stage III GFR 30-59 Moderately Decreased Stage IV GFR 15-29 Severely Decreased Stage V GFR <15 Very Little GFR Left ESRD GFR <15 on CINDER WORKER 2 VITAMIN B12 NORMAL RANGE NORMAL 247 - 911 PG/ML INDETERMINATE 211 - 246 PG/ML DEFICIENT LESS THAN 211 PG/ML 3 01/09/21 (SatJan 09) 07:25 PM GENIA ramos Procedures Date Code Description Status 12/22/2020 29873 Office/Outpatient New Moderate M DM 45-59 Minutes Completed Medical Devices Description No Information Available Encounters Type Date Location Provider Dx Diagnosis Office Visit 12/22/2020 1:15p [facility] Genia Caputo MD K58.0 Irritable bowel syndrome wit h diarrhea R63.4 Abnormal weight loss R19.7 Diarrhea, unspecified Assessments Date Code Description Provider 12/22/2020 K58.0 Irritable bowel syndrome with di arrhea Genia Caputo MD 12/22/2020 R63.4 Abnormal weight loss Genia moon MD 12/22/2020 R19.7 Diarrhea, unspecified Genia cleaning MD Plan of Treatment 12/22/2020 - Genia Caputo MD* K58.0 Irritable bowel syndrome with diarrhea * R63.4 Abnormal weight loss * R19.7 Diarrhea, unspecified * * New Medication:* Dicyclomine HCL 20 mg * Miralax 17 GM/Scoop * Milk Of Magnesia 1200 mg/15ML * New Labs:* Calprotectin Stool Sendout, Ordered: 12/22/20 * Pancreatic Elastase Stool Sendout, Ordered: 12/22/20 * Gastrointestinal (GI) Panel, Ordered: 12/22/20 * New Orders:* Colonoscopy/Terminal Ileoscopy/random biopsy, Ordered: 12/22/20 * EGD, Ordered: 12/22/20 * Comments:* Pt with likely IBS-D. to my review, he was never actually dx with crohns. he only had a [facility] lab test suggesting crohns possibility . He had EGD/[place]/SBS/CT not c/w with IBD/Crohns * Recommendations:* 1) dicyclomine prn trial 2) Stool testing 3) EGD and colonoscopy 4) CT Enterography Functional Status Description No Information Available Mental Status Description No Information Available Referrals Refer to Reason for Referral Status Appt Date Genia Caputo M.D. CH[facility]OHNS DISEASE Scheduled 12/22/2020 [facility], Gastroenterology [address], [address] [place] [address] [phone]
--- OUTSIDE RECORDS SUMMARY | 2021-04-04 06:34 | CCD ---
Author Organization Unknown Address [address] [place] [address] Phone [phone] Care Team Providers Care Parking Officer Name Role Phone [phone] Covid Nurse Unavailable Unavailable Allergies None recorded. Medications None recorded. Problems None recorded. Procedures None recorded. Results Lab Results Date Name Specimen Result Interpretation Description Value Range Status Address 02/17/2021 SARS CoV 2 RdRp Gene, QL Probe, Respiratory Spec imen Nasopharyngeal Normal Sars-cov-2 negative negative Final Main [facility]: [address] [place] [address] Past Encounters 02/17/2021 Exposure to SARS-CoV-2 Nikhil Glynn MD: [address] [place] [phone], Ph. Social History None recorded. Vaccine List None recorded. Plan of Care Reminders Provider Appointments None recorded. Lab None recorded. Referral None recorded. Procedures None recorded. Surgeries None recorded. Imaging None recorded. Vitals None recorded.
[2021-04-04] MEDS ORDERED: GLYCOPYRROLATE INJ 0.2 MG/ML 2 ML VIAL As Ordered ONE ×2 (06:42→06:50)
[2021-04-04] MEDS ORDERED: LIDOCAINE 2% 100MG/5ML SDV (FOR ANES.) As Ordered ONE ×2 (06:49→06:50)
[2021-04-04] MEDS ORDERED: propofoL 200 MG/20 ML VIAL As Ordered ONE ×4 (06:49→08:46)
--- NOTE | 2021-04-04 08:47 | ROOR ---
Patient Name: Gilberto Borges Procedure Date: 04/04/2021 6:55 AM Date of : 1995 Age: 25 Room: [facility] Gender: Male Note Status: Finalized Procedure: Upper GI endoscopy Indications: Epigastric abdominal pain, Heartburn, Suspected irritable bowel syndrome Providers: Dixon Lynn MD Referring MD: ANGEL Hall Requesting Provider: Medicines: Monitored Anesthesia Care Complications: No immediate complications. Procedure: Pre-Anesthesia Assessment: - The heart rate, respiratory rate, oxygen saturations, blood pressure, adequacy of pulmonary ventilation, and response to care were monitored throughout the procedure. The Endoscope was introduced through the mouth, and advanced to the second part of duodenum. The upper GI endoscopy was accomplished without difficulty. The patient tolerated the procedure well. Findings: The Z-line was variable and was found at the gastroesophageal junction. This was biopsied with a cold forceps for histology. The examined esophagus was normal. Scattered minimal inflammation characterized by erythema was found in the gastric antrum. Biopsies were taken with a cold forceps for Helicobacter pylori testing. The exam of the stomach was otherwise normal. (Large volume) The examined duodenum was normal. Biopsies for histology were taken with a cold forceps for evaluation of celiac disease. Impression: - Normal esophagus. Z-line variable, at the gastroesophageal junction. Biopsied. - Minimal gastritis. Biopsied. - Stomach is othewise normal. - Normal examined duodenum. Biopsied. Recommendation: - Await pathology results. - Telephone endoscopist for pathology results in 2 weeks. Procedure Code(s): --- Professional --- 47024, Esophagogastroduodenoscopy, flexible, transoral; with biopsy, single or multiple Diagnosis Code(s): --- Professional --- K22.8, Other specified diseases of esophagus K29.70, Gastritis, unspecified, without bleeding R10.13, Epigastric pain R12, Heartburn CPT copyright 2019 [employer]. All rights reserved. The codes documented in this report are preliminary and upon director marketing analytics review may be revised to meet current compliance requirements. Dixon Lynn MD Dixon Lynn MD 04/04/2021 8:47:06 AM Electronically signed by Dixon Lynn MD Number of Addenda: 0 Note Initiated On: 04/04/2021 6:55 AM Estimated Blood Loss: Estimated blood loss: none.
--- NOTE | 2021-04-04 09:02 | ROOR ---
Patient Name: Gilberto Borges Procedure Date: 04/04/2021 8:33 AM Date of : 1995 Age: 25 Room: [facility] Gender: Male Note Status: Finalized Procedure: Colonoscopy Indications: Suspected irritable bowel syndrome, Change in bowel habits Providers: Dixon Lynn MD Referring MD: ANGEL Hall Requesting Provider: Medicines: Monitored Anesthesia Care Complications: No immediate complications. Procedure: Pre-Anesthesia Assessment: - The heart rate, respiratory rate, oxygen saturations, blood pressure, adequacy of pulmonary ventilation, and response to care were monitored throughout the procedure. The Colonoscope was introduced through the anus and advanced to 15 cm into the ileum. The colonoscopy was performed without difficulty. The patient tolerated the procedure well. The quality of the bowel preparation was good. Findings: The perianal and digital rectal examinations were normal. The colon is normal. The terminal ileum is normal. Biopsies for histology were taken with a cold forceps from the entire colon and terminal ileum for evaluation of microscopic colitis. Impression: - The entire colon is normal. - The terminal ileum is normal. - Biopsies were taken with a cold forceps from the entire colon for evaluation of microscopic colitis. - (Irritable Bowel Syndrome/IBS suspected.) Recommendation: - Use Bentyl (dicyclomine) 20 mg PO Q 6-8 hrs PRN 30 min AC. - (the script was sent to your pharmacy on file) Procedure Code(s): --- Professional --- 36587, Colonoscopy, flexible; with biopsy, single or multiple Diagnosis Code(s): --- Professional --- R19.4, Change in bowel habit CPT copyright 2019 [employer]. All rights reserved. The codes documented in this report are preliminary and upon hall cleaner review may be revised to meet current compliance requirements. Dixon Lynn MD Dixon Lynn MD 04/04/2021 9:01:50 AM Electronically signed by Dixon Lynn MD Number of Addenda: 0 Note Initiated On: 04/04/2021 8:33 AM Estimated Blood Loss: Estimated blood loss: none.
[2021-04-04 09:30] VITALS: BP 132/74
== END 2021-04-04 09:40 | disposition home or self-care (01) ==
LOC: M OPP 06:30
PROVIDERS: ATTEND Internal Medicine Gastroenterology
DX: K63.5 Polyp of colon (principal); R19.4 Change in bowel habit; K22.89 Other specified disease of esophagus; K29.70 Gastritis, unspecified, without bleeding; R10.13 Epigastric pain; Z79.899 Other long term (current) drug therapy; Z88.1 Allergy status to other antibiotic agents

== ENCOUNTER → 2021-05-24 | Outpatient (REF) | payer BC ==
[~2021-05-24] MED LIST changes: -NS 1,000 ML IV ONE
== END ==
LOC: M SMT 13:01
PROVIDERS: ATTEND Urology
DX: Z30.2 Encounter for sterilization (principal)

== ENCOUNTER → 2025-04-01 | Outpatient (RCR) ==
[~2025-04-01] MED LIST changes: -CYCL5TAB PO; +CYCL5TAB4 PO; -ROSU10TA6 PO; +ROSU10TA90 PO
== END ==
LOC: M EMP 03-03 08:05
PROVIDERS: ATTEND Family Medicine
DX: Z20.828 Contact with and (suspected) exposure to other viral communicable diseases (principal)